=== PATIENT | female | born 1965 | race Caucasian/White ===

== ENCOUNTER 2017-07-25 00:31 | Emergency (ER) | payer OTHER ==
[~2017-07-25] VITALS: Ht 160 cm; Wt 61.2 kg
[2017-07-25 00:47] VITALS: BP 112/66; PULSE 62; RESP 18; TEMP 98.5; O2SAT 99
[2017-07-25 01:07] VITALS: BP 112/66; PULSE 62; RESP 18; TEMP 98.5; O2SAT 99
[2017-07-25] MEDS ORDERED: seasonale PO (01:21)
[2017-07-25] MEDS ORDERED: PIPERACIL-TAZO 4.5 GM PREMIX 100 ML IV ONE (01:45)
[2017-07-25] MEDS ORDERED: TETANUS/DIPHTHERIA TOXOID ADULT 0.5 ML VIAL IM ONE (01:45)
[2017-07-25] MEDS ORDERED: CLINDAMYCIN 900 MG/NS PREMIX 50 ML IV ONE (01:45)
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
[2017-07-25 02:26] LABS: BICARBONATE 27.9 MEQ/L (21.0-32.0); CALCIUM 8.8 MG/DL (8.5-10.1)
[2017-07-25 02:30] LABS: CREATININE 0.78 MG/DL (0.50-1.00)
[2017-07-25] MEDS ORDERED: VANCOMYCIN INJ 1,000 MG in SODIUM CHLOR 0.9% 250 ML INJ 250 ML IV ONE (02:45)
[2017-07-25 03:00] LABS: AUTOMATED NEUTROPHIL # 5.6 TH/MM3 (1.8-7.7); BASOPHIL # 0.2 TH/MM3 (0-0.2); BASOPHIL % 1.7 % (0.0-2.0); EOSINOPHIL # 0.2 TH/MM3 (0-0.4); EOSINOPHIL % 1.9 % (0.0-4.0); HEMATOCRIT 43.7 % (35.0-46.0); HEMOGLOBIN 14.3 GM/DL (11.6-15.3); LYMPH % 33.2 % (9.0-44.0); LYMPHOCYTE # 3.5 TH/MM3 (1.0-4.8); MEAN CELL VOLUME 101.8 FL (80.0-100.0); MEAN CORPUSCULAR HEMOGLOBIN 33.3 PG (27.0-34.0); MEAN CORPUSCULAR HGB CONC 32.7 % (32.0-36.0); MEAN PLATELET VOLUME 8.4 FL (7.0-11.0); MONOCYTE # 0.9 TH/MM3 (0-0.9); NEUT % 54.2 % (16.0-70.0); PLATELET COUNT 334 TH/MM3 (150-450); RED BLOOD COUNT 4.29 MIL/MM3 (4.00-5.30); RED CELL DISTRIBUTION WIDTH 11.7 % (11.6-17.2); WHITE BLOOD COUNT 10.4 TH/MM3 (4.0-11.0)
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
[2017-07-25] MEDS ORDERED: POTASSIUM CHLORIDE 20 MEQ CONTROLLED RELEASE TAB PO ONE (03:30)
[2017-07-25] MEDS ORDERED: AUGM875T3 PO (03:34)
[2017-07-25 04:54] VITALS: BP 105/62
== END 2017-07-25 04:58 | disposition home health service (06) ==
LOC: PHED 00:31
DX: L03.113 Cellulitis of right upper limb (principal); S51.831A Puncture wound without foreign body of right forearm, initial encounter; W61.91XA Bitten by other birds, initial encounter; Z23 Encounter for immunization
CPT/HCPCS: 73090; 80048; 85025; 87040; 87070; 90471; 90714; 96365; 96367; 99284; J2543; J3370; J7050

== ENCOUNTER 2017-07-25 10:30 | Emergency (ER) | payer OTHER ==
[~2017-07-25] VITALS: Ht 162.6 cm; Wt 60.8 kg
[~2017-07-25 10:30] MED LIST: AUGM875T3 PO; seasonale PO
[2017-07-25 10:32] VITALS: BP 114/68; PULSE 84; RESP 16; TEMP 98.3; O2SAT 98
[2017-07-25] MEDS ORDERED: VANCOMYCIN INJ 1,000 MG in SODIUM CHLOR 0.9% 250 ML INJ 250 ML IV ONE (11:00)
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
[2017-07-25] MEDS ORDERED: SODIUM CHLORIDE 0.9% FLUSH 10 ML FLUSH IV FLUSH PRN (12:15)
[2017-07-25 12:16] VITALS: BP 102/52; PULSE 71; RESP 16; O2SAT 99
== END 2017-07-25 13:06 | disposition home or self-care (01) ==
LOC: PHEFT 10:30
DX: L03.113 Cellulitis of right upper limb (principal); S51.831D Puncture wound without foreign body of right forearm, subsequent encounter; W61.91XD Bitten by other birds, subsequent encounter
CPT/HCPCS: 96365; 99284; J3370; J7050